=== PATIENT | male | born 1950 | race Caucasian/White ===

== ENCOUNTER → 2022-07-06 15:24 | Outpatient (CLI) | payer MEDICARE, SELFPAY ==
--- NOTE | 2022-07-06 16:26 | MR_ITS ---
PROCEDURE INFORMATION: Exam: MR Lumbar Spine Without Contrast Exam date and time: 07/06/2022 4:29 PM Age: 72 years old Clinical indication: Low back pain TECHNIQUE: Imaging protocol: Magnetic resonance imaging of the lumbar spine without contrast. COMPARISON: No relevant prior studies available. 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 Spinal cord: Visualized cord, conus medullaris and cauda equina are unremarkable without compression. L1-L2: No significant disc bulge or herniation. No severe spinal canal stenosis. No significant neural foraminal narrowing. L2-L3: No significant disc bulge or herniation. No severe spinal canal stenosis. No significant neural foraminal narrowing. L3-L4: Mild broad-based degenerative posterior disc bulge No severe spinal canal stenosis. No significant neural foraminal narrowing. L4-L5: Gdea-ek-seiphlfp degenerative posterior disc bulge No severe spinal canal stenosis. Facet hypertrophy. Whog-ft-tsiaddms right and mild neural foraminal narrowing. L5-S1: Yvcf-hq-pnumsneu degenerative posterior disc bulge. Facet hypertrophy. Ligamentum flavum hypertrophy. Jsfp-xd-jjxfkjgf central canal stenosis. Moderate bilateral neural foraminal narrowing. Soft tissues: Unremarkable. IMPRESSION: Multilevel degenerative disc and joint space disease most pronounced at L5/S1 with ohlz-[id number]-[id number] central canal and moderate neural foraminal narrowing contributed by posterior disc bulge, facet and ligamentum flavum hypertrophy.
== END ==
PROVIDERS: PCP Anesthesiology; Visit Provider Anesthesiology
DX: M54.50 Low back pain, unspecified (principal); M54.16 Radiculopathy, lumbar region
CPT/HCPCS: 72148; 76376